=== PATIENT | female | born 2000 | race Caucasian/White ===

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

== ENCOUNTER 2019-12-17 16:06 | Inpatient (IN) ==
[2019-12-17] MEDS ORDERED: SODIUM CHLORIDE 0.9% 1000ML 1,000 ML IV ONE (17:01)
[2019-12-17] MEDS ORDERED: FAMOTIDINE 20MG/5ML IV PUSH IV STA (17:01)
[2019-12-17] MEDS ORDERED: ONDANSETRON INJ 2 MG/ML 2 ML VIAL IV STA (17:01)
[2019-12-17 17:12] LABS: Basophils # (auto) 0.02 K/uL (0-0.2); Basophils % (auto) 0.2 %; Eosinophils # (auto) 0.27 K/uL (0-0.5); Eosinophils % (auto) 2.7 %; Hemoglobin 9.7 g/dL (12.0-16.0); Immature Granulocytes # (auto) 0.05 K/uL (0.00-0.02); Immature Granulocytes % (auto) 0.5 %; Lymphocytes # (auto) 1.81 K/uL (1.2-3.4); Lymphocytes % (auto) 17.8 %; Mean Corpuscular Hemoglobin 23.5 pg (25-34); Mean Corpuscular Hgb Conc 29.4 g/dL (32-36); Mean Corpuscular Volume 79.9 fL (80-100); Mean Platelet Volume 9.7 fL (7.4-10.4); Monocytes # (auto) 1.03 K/uL (0.11-0.59); Monocytes % (auto) 10.1 %; Neutrophils # (auto) 6.97 K/uL (1.4-6.5); Neutrophils % (auto) 68.7 %; Platelet Count 448 K/uL (130-400); RDW Coefficient of Variation 14.9 % (11.5-14.5); Red Blood Count 4.13 M/uL (4.2-5.4); White Blood Count 10.15 K/uL (4.8-10.8)
[2019-12-17 17:16] LABS: Appearance Urine Clear (Clear); Bacteria Urine Automated Negative (Negative); Bilirubin Urine Negative (Negative); Blood Urine 3+ (Negative); Color Urine Yellow; Epithelial Cell Urine Auto >30 /lpf (0-5); Glucose Urine UA Negative (Negative); Ketones Urine 2+ (Negative); Leukocyte Esterase Urine Trace (Negative); Nitrite Urine Negative (Negative); Protein Urine Trace (Negative); RBC Urine Automated 0-4 /hpf (0-4); Specific Gravity Urine 1.016 (1.000-1.030); Urobilinogen Urine Negative (Negative)
[2019-12-17 17:19] LABS: Albumin Level 4.1 gm/dl (3.4-5.0); BUN Creatinine Ratio 9.6 (10-20); Calcium 9.3 mg/dl (8.5-10.1); Creatinine Clr Calc Pharmacy 105.6 ml/min; Est GFR (African American) 105.9; Est GFR (Non-African American) 91.4; Magnesium 2.1 mg/dl (1.8-2.4); Potassium 3.5 mmol/L (3.5-5.1)
[2019-12-17 17:21] LABS: Albumin Globulin Ratio 0.9 (0.9-2); Bilirubin,Total 0.4 mg/dl (0.2-1); Globulin 4.5 gm/dl (2.5-4.0); Total Protein 8.6 gm/dl (6.4-8.2)
--- NOTE | 2019-12-17 17:21 | Emergency Department Note ---
Impression & Plan Rectal bleeding, Anemia, Lower abdominal pain, Colitis ED Provider Note NAME: ERIK REILLY AGE: 19 SEX: F : 2000 ARRIVES VIA: Walk-In INFORMANT: [Patient] ED PROVIDER(S): [Zach Hahn MD] CHIEF COMPLAINT: Rectal bleeding HISTORY OF PRESENT ILLNESS: The patient is a 19-year-old female who states that for several months, she has had rectal bleeding. The blood was with bowel movements. There would be blood in the toilet and when she would wipe. She saw a provider about this before coming to school to [facility] and they felt that she may have had a tear that was bleeding. She was given suppositories but she states the suppositories made things worse. In the last week, the patient has had increased bleeding, she has had upper abdominal pain that is a 7 on a scale of 1-10. The pain comes on and she has to go to the bathroom. When she goes, the stool is loose and bloody. She is going to the bathroom about every hour. She is concerned that she is dehydrated. She is unable to sleep. There has been no fever, no chills. No cough or cold or congestion. No shortness of breath. She has no history of previous issues like this. No history of inflammatory bowel disease in the family. REVIEW OF SYSTEMS: See HPI for pertinent positives and negatives. A total of ten systems were reviewed and were otherwise negative. PMHx/PSHx: See Below SOCIAL HISTORY: See Below. PHYSICAL EXAM: GENERAL: Patient is in no acute distress. HEENT: No acute trauma, normocephalic atraumatic, mucous membranes moist, no nasal congestion, no scleral icterus. NECK: No stridor, no adenopathy, no meningismus, trachea is midline. LUNGS: Clear to auscultation bilaterally, no wheeze, no rhonchi, breath sounds equal. HEART: Tachycardic, regular rhythm, no murmurs. ABDOMEN: Soft, mildly tender in the lower abdomen/pelvis bilaterally, bowel sounds positive, no hernias, no peritonitis. EXTREMITIES: No cyanosis or edema, full range of motion of all the joints without pain or difficulty, no signs for acute trauma. NEUROLOGIC: Oriented x 3, no acute motor or sensory deficits, no focal weakness. SKIN: No rash, no jaundice, no diaphoresis. Rectal: Brown stool, heme positive. There is no hemorrhoid, no anal tear. Digital exam reveals no mass within the rectum. DIFFERENTIAL DIAGNOSIS: Diverticulosis, AVM, coagulopathy, colitis, inflammatory bowel disease, malignancy, Angelique-Morales tear, esophagitis, peptic ulcer disease, variceal bleed, gastritis, epistaxis, fissure, hemorrhoids, as well as other pathologies. EMERGENCY DEPARTMENT COURSE/PROCEDURES: ECG: Indication was tachycardia. The ECG shows a normal sinus rhythm with a rate of 92. There is no ST elevation, no PVCs. The QTc is 464. Continuous Cardiac Monitoring: An order was placed for continuous cardiac monitoring. The monitor shows a rate of 87 with normal sinus rhythm. MEDICAL DECISION MAKING: There is no leukocytosis. The patient is anemic with a hemoglobin of 9.7. Platelet count was slightly elevated. No significant electrolyte abnormality or kidney failure. No liver enzyme elevation. No evidence for pancreatitis. Urinalysis showed contamination, no obvious infection. testing was negative. Stool C. difficile testing was negative. Stool cultures are pending. Abdominal and pelvis CT showed a diffuse colitis, no bowel obstruction or free air. Patient received IV saline for hydration. She was given IV Zofran, she received IV lactated Ringer's, she was given IV Pepcid. The patient is anemic. She has colitis. By exam, she does have heme positive stool. I did speak with GI, a hospitalization and colonoscopy were recommended. There is concern for ulcerative colitis as the cause for her presentation. The patient was told the results of her testing. She is aware of the need for a hospital stay. I did speak with the caseworker intake. The on-call hospitalist was consulted. Past Med/Surg History Medical History ADHD Social History Smoking Status: Former smoker Tobacco Type: Cigarettes Preferred Language: Ukrainian Feels Safe at Home: Yes Allergies Allergies Allergy/AdvReac Type Severity Reaction Status Date / Time red dye AdvReac Intermediate Vomiting Verified 12/17/19 17:19 Home Meds Home Medications Medication Instructions Recorded Confirmed dextroamphetamine-amphetamine 25 mg PO QAM PRN 12/17/19 12/17/19 [Adderall XR] etonogestrel [Nexplanon] 68 mg SUBDERMAL DIRECTED 12/17/19 12/17/19 Results & Data (ED) Vital Signs Vital Signs - 24 hr 12/17/19 16:19 12/17/19 17:01 12/17/19 17:03 Temperature 36.6 C Temperature Source Oral Pulse Rate 124 H 112 H 121 H Pulse Rate [Finger] Pulse Rate from SpO2 Sensor 114 H 118 H Respiratory Rate 18 22 17 Respiratory Effort / Characteristics Non-Labored Spontaneous Respiratory Depth Normal Respiratory Pattern Regular Blood Pressure 140/95 129/84 Blood Pressure [Right Arm] Blood Pressure Mean 110 113 Blood Pressure Mean [Right Arm] Blood Pressure Position Sitting Pulse Oximetry 97 98 99 Oxygen Delivery Method Room Air Room Air Room Air Sepsis Recent Fever Within 48 Hours No Sepsis New/Unexplained Change in Mental Status No Sepsis Action Taken by Nursing No Action Required 12/17/19 17:10 12/17/19 17:21 12/17/19 17:48 Temperature Temperature Source Pulse Rate 109 H 125 H Pulse Rate [Finger] Pulse Rate from SpO2 Sensor 109 H Respiratory Rate 17 24 Respiratory Effort / Characteristics Respiratory Depth Respiratory Pattern Blood Pressure Blood Pressure [Right Arm] Blood Pressure Mean Blood Pressure Mean [Right Arm] Blood Pressure Position Pulse Oximetry 98 Oxygen Delivery Method Room Air Room Air Room Air Sepsis Recent Fever Within 48 Hours Sepsis New/Unexplained Change in Mental Status Sepsis Action Taken by Nursing 12/17/19 17:50 12/17/19 18:00 12/17/19 18:01 Temperature Temperature Source Pulse Rate 97 H 93 H 103 H Pulse Rate [Finger] Pulse Rate from SpO2 Sensor 92 H 106 H Respiratory Rate 18 16 20 Respiratory Effort / Characteristics Respiratory Depth Respiratory Pattern Blood Pressure 121/85 Blood Pressure [Right Arm] Blood Pressure Mean 89 Blood Pressure Mean [Right Arm] Blood Pressure Position Pulse Oximetry 100 100 Oxygen Delivery Method Room Air Room Air Room Air Sepsis Recent Fever Within 48 Hours Sepsis New/Unexplained Change in Mental Status Sepsis Action Taken by Nursing 12/17/19 18:10 12/17/19 18:20 12/17/19 18:45 Temperature Temperature Source Pulse Rate 88 103 H 113 H Pulse Rate [Finger] Pulse Rate from SpO2 Sensor 89 102 H Respiratory Rate 13 16 19 Respiratory Effort / Characteristics Respiratory Depth Respiratory Pattern Blood Pressure Blood Pressure [Right Arm] Blood Pressure Mean Blood Pressure Mean [Right Arm] Blood Pressure Position Pulse Oximetry 100 100 Oxygen Delivery Method Room Air Room Air Room Air Sepsis Recent Fever Within 48 Hours Sepsis New/Unexplained Change in Mental Status Sepsis Action Taken by Nursing 12/17/19 18:50 12/17/19 18:51 12/17/19 19:00 Temperature Temperature Source Pulse Rate 103 H 103 H 95 H Pulse Rate [Finger] Pulse Rate from SpO2 Sensor 104 H 99 H 96 H Respiratory Rate 19 19 22 Respiratory Effort / Characteristics Respiratory Depth Respiratory Pattern Blood Pressure 113/87 123/91 Blood Pressure [Right Arm] Blood Pressure Mean 99 99 Blood Pressure Mean [Right Arm] Blood Pressure Position Pulse Oximetry 100 100 100 Oxygen Delivery Method Room Air Room Air Room Air Sepsis Recent Fever Within 48 Hours Sepsis New/Unexplained Change in Mental Status Sepsis Action Taken by Nursing 12/17/19 19:01 12/17/19 19:11 12/17/19 19:20 Temperature Temperature Source Pulse Rate 98 H 111 H 87 Pulse Rate [Finger] Pulse Rate from SpO2 Sensor 98 H 88 Respiratory Rate 24 38 H 20 Respiratory Effort / Characteristics Respiratory Depth Respiratory Pattern Blood Pressure Blood Pressure [Right Arm] Blood Pressure Mean Blood Pressure Mean [Right Arm] Blood Pressure Position Pulse Oximetry 100 99 Oxygen Delivery Method Room Air Room Air Room Air Sepsis Recent Fever Within 48 Hours Sepsis New/Unexplained Change in Mental Status Sepsis Action Taken by Nursing 12/17/19 19:30 12/17/19 19:45 12/17/19 19:50 Temperature Temperature Source Pulse Rate 83 100 H 95 H Pulse Rate [Finger] Pulse Rate from SpO2 Sensor 84 96 H Respiratory Rate 15 22 16 Respiratory Effort / Characteristics Respiratory Depth Respiratory Pattern Blood Pressure 105/79 Blood Pressure [Right Arm] Blood Pressure Mean 83 Blood Pressure Mean [Right Arm] Blood Pressure Position Pulse Oximetry 100 100 Oxygen Delivery Method Room Air Room Air Room Air Sepsis Recent Fever Within 48 Hours Sepsis New/Unexplained Change in Mental Status Sepsis Action Taken by Nursing 12/17/19 20:55 12/17/19 20:56 12/17/19 20:57 Temperature Temperature Source Pulse Rate Pulse Rate [Finger] 87 Pulse Rate from SpO2 Sensor 93 H 95 H Respiratory Rate 20 Respiratory Effort / Characteristics Non-Labored Spontaneous Respiratory Depth Normal Respiratory Pattern Regular Blood Pressure 116/79 Blood Pressure [Right Arm] 116/79 Blood Pressure Mean 84 Blood Pressure Mean [Right Arm] 91 Blood Pressure Position Pulse Oximetry 100 100 100 Oxygen Delivery Method Room Air Room Air Room Air Sepsis Recent Fever Within 48 Hours Sepsis New/Unexplained Change in Mental Status Sepsis Action Taken by Nursing 12/17/19 21:00 12/17/19 21:01 12/17/19 21:10 Temperature Temperature Source Pulse Rate Pulse Rate [Finger] Pulse Rate from SpO2 Sensor 93 H 92 H 101 H Respiratory Rate Respiratory Effort / Characteristics Respiratory Depth Respiratory Pattern Blood Pressure 124/73 Blood Pressure [Right Arm] Blood Pressure Mean 83 Blood Pressure Mean [Right Arm] Blood Pressure Position Pulse Oximetry 100 100 100 Oxygen Delivery Method Room Air Room Air Room Air Sepsis Recent Fever Within 48 Hours Sepsis New/Unexplained Change in Mental Status Sepsis Action Taken by Nursing 12/17/19 21:21 12/17/19 21:30 12/17/19 21:31 Temperature Temperature Source Pulse Rate Pulse Rate [Finger] Pulse Rate from SpO2 Sensor 83 86 86 Respiratory Rate Respiratory Effort / Characteristics Respiratory Depth Respiratory Pattern Blood Pressure 125/75 Blood Pressure [Right Arm] Blood Pressure Mean 93 Blood Pressure Mean [Right Arm] Blood Pressure Position Pulse Oximetry 99 99 Oxygen Delivery Method Room Air Room Air Room Air Sepsis Recent Fever Within 48 Hours Sepsis New/Unexplained Change in Mental Status Sepsis Action Taken by Nursing 12/17/19 21:46 12/17/19 21:50 12/17/19 22:00 Temperature Temperature Source Pulse Rate Pulse Rate [Finger] Pulse Rate from SpO2 Sensor 103 H 96 H 101 H Respiratory Rate Respiratory Effort / Characteristics Respiratory Depth Respiratory Pattern Blood Pressure 112/80 Blood Pressure [Right Arm] Blood Pressure Mean 90 Blood Pressure Mean [Right Arm] Blood Pressure Position Pulse Oximetry 100 100 100 Oxygen Delivery Method Room Air Room Air Room Air Sepsis Recent Fever Within 48 Hours Sepsis New/Unexplained Change in Mental Status Sepsis Action Taken by Nursing 12/17/19 22:01 12/17/19 22:10 12/17/19 22:20 Temperature Temperature Source Pulse Rate Pulse Rate [Finger] Pulse Rate from SpO2 Sensor 94 H 94 H 100 H Respiratory Rate Respiratory Effort / Characteristics Respiratory Depth Respiratory Pattern Blood Pressure Blood Pressure [Right Arm] Blood Pressure Mean Blood Pressure Mean [Right Arm] Blood Pressure Position Pulse Oximetry 98 100 100 Oxygen Delivery Method Room Air Room Air Room Air Sepsis Recent Fever Within 48 Hours Sepsis New/Unexplained Change in Mental Status Sepsis Action Taken by [facility] Medications Current Medication List: was personally reviewed by me Laboratory Data Attestation: I reviewed the patient's lab results. Result diagrams: 12/17/19 16:32 12/17/19 16:32 Lab Results 12/17/19 12/17/19 12/17/19 Range/Units 16:32 16:32 16:32 WBC 10.15 (4.8-10.8) K/uL RBC 4.13 L (4.2-5.4) M/uL Hgb 9.7 L (12.0-16.0) g/dL Hct 33.0 L (37-47) % MCV 79.9 L (80-100) fL MCH 23.5 L (25-34) pg MCHC 29.4 L (32-36) g/dL RDW Std Deviation 43.0 (36.4-46.3) fL RDW Coeff of Leigh Ann 14.9 H (11.5-14.5) % Plt Count 448 H (130-400) K/uL MPV 9.7 (7.4-10.4) fL Immature Gran % (Auto) 0.5 % Neut % (Auto) 68.7 % Lymph % (Auto) 17.8 % Lucas % (Auto) 10.1 % Eos % (Auto) 2.7 % Baso % (Auto) 0.2 % Neut # (Auto) 6.97 H (1.4-6.5) K/uL Lymph # (Auto) 1.81 (1.2-3.4) K/uL Lucas # (Auto) 1.03 H (0.11-0.59) K/uL Eos # (Auto) 0.27 (0-0.5) K/uL Baso # (Auto) 0.02 (0-0.2) K/uL Immature Gran # (Auto) 0.05 H (0.00-0.02) K/uL Sodium (136-145) mmol/L Potassium (3.5-5.1) mmol/L Chloride (98-107) mmol/L Carbon Dioxide (21-32) mmol/L Anion Gap (3-11) BUN (7-18) mg/dl Creatinine (0.6-1.2) mg/dl Est Cr Clr Drug Dosing ml/min Est GFR ( Amer) Est GFR (Non-Af Amer) BUN/Creatinine Ratio (10-20) Glucose (70-99) mg/dl Calcium (8.5-10.1) mg/dl Magnesium (1.8-2.4) mg/dl Total Bilirubin (0.2-1) mg/dl AST (15-37) U/L ALT (12-78) U/L Alkaline Phosphatase (45-117) U/L Total Protein (6.4-8.2) gm/dl Albumin (3.4-5.0) gm/dl Globulin (2.5-4.0) gm/dl Albumin/Globulin Ratio (0.9-2) Lipase (73-393) U/L Urine Color Urine Appearance (Clear) Urine pH (4.5-7.5) Ur Specific [place] (1.000-1.030) Urine Protein (Negative) Urine Glucose (UA) (Negative) Urine Ketones (Negative) Urine Blood (Negative) Urine Nitrite (Negative) Urine Bilirubin (Negative) Urine Urobilinogen (Negative) Ur Leukocyte Esterase (Negative) Urine WBC (Auto) (0-5) /hpf Urine RBC (Auto) (0-4) /hpf U Hyaline Cast (Auto) (0-5) /lpf U Epithel Cells (Auto) (0-5) /lpf Urine Bacteria (Auto) (Negative) Ur Renal Epithelial Cell Urine Mucus (None Prsent) POC Ur Test NEG (NEG) Stl C. diff Tox B Gene (Neg) Blood Type A Positive Antibody Screen NEGATIVE 12/17/19 12/17/19 12/17/19 Range/Units 16:32 16:32 21:58 WBC (4.8-10.8) K/uL RBC (4.2-5.4) M/uL Hgb (12.0-16.0) g/dL Hct (37-47) % MCV (80-100) fL MCH (25-34) pg MCHC (32-36) g/dL RDW Std Deviation (36.4-46.3) fL RDW Coeff of Leigh Ann (11.5-14.5) % Plt Count (130-400) K/uL MPV (7.4-10.4) fL Immature Gran % (Auto) % Neut % (Auto) % Lymph % (Auto) % Lucas % (Auto) % Eos % (Auto) % Baso % (Auto) % Neut # (Auto) (1.4-6.5) K/uL Lymph # (Auto) (1.2-3.4) K/uL Lucas # (Auto) (0.11-0.59) K/uL Eos # (Auto) (0-0.5) K/uL Baso # (Auto) (0-0.2) K/uL Immature Gran # (Auto) (0.00-0.02) K/uL Sodium 137 (136-145) mmol/L Potassium 3.5 (3.5-5.1) mmol/L Chloride 106 (98-107) mmol/L Carbon Dioxide 22 (21-32) mmol/L Anion Gap 9.0 (3-11) BUN 9 (7-18) mg/dl Creatinine 0.90 (0.6-1.2) mg/dl Est Cr Clr Drug Dosing 105.6 ml/min Est GFR ( Amer) 105.9 Est GFR (Non-Af Amer) 91.4 BUN/Creatinine Ratio 9.6 L (10-20) Glucose 101 H (70-99) mg/dl Calcium 9.3 (8.5-10.1) mg/dl Magnesium 2.1 (1.8-2.4) mg/dl Total Bilirubin 0.4 (0.2-1) mg/dl AST 11 L (15-37) U/L ALT 11 L (12-78) U/L Alkaline Phosphatase 70 (45-117) U/L Total Protein 8.6 H (6.4-8.2) gm/dl Albumin 4.1 (3.4-5.0) gm/dl Globulin 4.5 H (2.5-4.0) gm/dl Albumin/Globulin Ratio 0.9 (0.9-2) Lipase 79 (73-393) U/L Urine Color Yellow Urine Appearance Clear (Clear) Urine pH 5.0 (4.5-7.5) Ur Specific [place] 1.016 (1.000-1.030) Urine Protein Trace H (Negative) Urine Glucose (UA) Negative (Negative) Urine Ketones 2+ H (Negative) Urine Blood 3+ H (Negative) Urine Nitrite Negative (Negative) Urine Bilirubin Negative (Negative) Urine Urobilinogen Negative (Negative) Ur Leukocyte Esterase Trace H (Negative) Urine WBC (Auto) 1-5 (0-5) /hpf Urine RBC (Auto) 0-4 (0-4) /hpf U Hyaline Cast (Auto) 10-30 H (0-5) /lpf U Epithel Cells (Auto) >30 H (0-5) /lpf Urine Bacteria (Auto) Negative (Negative) Ur Renal Epithelial Cell Not Reportable Urine Mucus Present A (None Prsent) POC Ur Test (NEG) Stl C. diff Tox B Gene Negative Cdiff Gene (Neg) Blood Type Antibody Screen Administered Medications Discontinued Medications Famotidine (Famotidine 20mg/5ml Iv Push) 20 mg IV ONE STA Stop: 12/17/19 17:02 Last Admin: 12/17/19 17:52 Dose: 20 mg Documented by: [id number] Sodium Chloride (Nss 1000ml) 1,000 mls @ 999 mls/hr IV .Q1H1M ONE Stop: 12/17/19 18:01 Last Infusion: 12/17/19 18:31 Dose: 0 mls/hr Documented by: [id number] Admin: 12/17/19 17:23 Dose: 999 mls/hr Documented by: [id number] Lactated Ringer's (Lr) 1,000 mls @ 999 mls/hr IV .Q1H1M STA Stop: 12/17/19 19:42 Last Infusion: 12/17/19 20:19 Dose: 0 mls/hr Documented by: [id number] Admin: 12/17/19 19:16 Dose: 999 mls/hr Documented by: [id number] Ioversol (Ioversol 100ml) 93 ml IV ONCE ONE Stop: 12/17/19 19:13 Last Admin: 12/17/19 19:13 Dose: 1 ml Documented by: [id number] Ondansetron HCl (Ondansetron Inj 2 Mg/Ml 2 Ml Vial) 4 mg IV NOW STA Stop: 12/17/19 17:02 Last Admin: 12/17/19 17:52 Dose: 4 mg Documented by: [id number] Imaging Data Radiologist's Impression: CT OF THE ABDOMEN AND PELVIS WITH CONTRAST CLINICAL HISTORY: Abdominal pain. Rectal bleeding. COMPARISON STUDY: None. TECHNIQUE: Following IV administration of 94 mL of Optiray-320, axial images of the abdomen and pelvis were obtained from the lung bases to the proximal femurs. Images were reviewed in the axial, sagittal, and coronal planes. IV contrast was administered without complication. Automated exposure control was utilized for the study. A dose lowering technique was utilized adhering to the principles of ALARA. Oral contrast was administered. CT DOSE: 491.90 mGy.cm FINDINGS: Lung bases are unremarkable. No pneumatosis, free air or portal venous gas is present. The liver, spleen, adrenal glands, kidneys and pancreas are normal. There is no biliary or pancreatic ductal dilatation. There is no hydronephrosis or hydroureter. There is no evidence for a bowel obstruction. The appendix is normal. Note is made of moderate wall thickening of the entire colon as well as wall thickening of the rectum. Prominent pericolonic lymph nodes are reactive. There is no abscess. No small bowel wall thickening is noted. Ovaries are not enlarged. Major vasculature is patent. No fractures or suspicious lesions are identified within the visualized skeletal structures. IMPRESSION: Mild wall thickening of the rectum and moderate wall thickening of the colon consistent with a pancolitis. This may be infectious or inflammatory in etiology. No abscess. Blood Pressure Blood Pressure Findings: Normal blood pressure Blood Pressure Disposition: further management by hospitalist Discharge Plan Visit Data Chief Complaint: Rectal Bleed Stated Complaint: abnormal labs ED Provider: Zach Hahn Discharge Problem: Rectal bleeding, Anemia, Lower abdominal pain, Colitis Patient Disposition: Admitted As Inpatient Condition: Fair Forms Stand Alone Forms: [facility], [facility], Important Visit Information Prescriptions Prescriptions: No Action dextroamphetamine-amphetamine [Adderall XR] 25 mg capsule,extended release 24hr 25 mg PO QAM PRN (Reason: ADHD) RF: 0 Nexplanon 68 mg Implant 68 mg SUBDERMAL DIRECTED RF: 0 Referrals Referrals: [facility] [Primary Care Provider] - Discharge Problem: Anemia Qualifiers: Anemia type: unspecified type Qualified Code(s): D64.9 - Anemia, unspecified
[2019-12-17 17:31] LABS: Mucus Urine Present (None Prsent)
[2019-12-17] MEDS ORDERED: LACTATED RINGER'S 1,000 ML IV STA (18:42)
[2019-12-17] MEDS ORDERED: IOVERSOL 100ml IV ONE (19:12)
--- NOTE | 2019-12-17 20:19 | CT Scan Report ---
CT OF THE ABDOMEN AND PELVIS WITH CONTRAST CLINICAL HISTORY: Abdominal pain. Rectal bleeding. COMPARISON STUDY: None. TECHNIQUE: Following IV administration of 94 mL of Optiray-320, axial images of the abdomen and pelvi s were obtained from the lung bases to the proximal femurs. Images were reviewed in the axial, sagitt al, and coronal planes. IV contrast was administered without complication. Automated exposure contro l was utilized for the study. A dose lowering technique was utilized adhering to the principles of A ROE. Oral contrast was administered. CT DOSE: 491.90 mGy.cm FINDINGS: Lung bases are unremarkable. No pneumatosis, free air or portal venous gas is present. The liver, spleen, adrenal glands, kidneys and pancreas are normal. There is no biliary or pancreatic javad chris dilatation. There is no hydronephrosis or hydroureter. There is no evidence for a bowel obstructi on. The appendix is normal. Note is made of moderate wall thickening of the entire colon as well as w all thickening of the rectum. Prominent pericolonic lymph nodes are reactive. There is no abscess. No small bowel wall thickening is noted. Ovaries are not enlarged. Major vasculature is patent. No frac tures or suspicious lesions are identified within the visualized skeletal structures. IMPRESSION: Mild wall thickening of the rectum and moderate wall thickening of the colon consistent with a pancolitis. This may be infectious or inflammatory in etiology. No abscess. ACT 112: Negative or not required by law. Electronically signed by: Arthur Conte M.D. 12/17/2019 8:18 PM
--- NOTE | 2019-12-17 23:07 | History & Physical Report ---
Date of Service December 17, 2019 Assessment & Plan (1) Blood in stool, pretty: Karen Moore is a 19 year old female without significant past medical history who presented to the ED with a few-month history of progressively worsening bloody stools, abdominal pain, bowel urgency, and bowel frequency, with associated anemia, concerning for inflammatory bowel disease. Bloody stools, BM frequency and urgency, abdominal pain: most likely the initial presentation of inflammatory bowel disease given the chronicity, pattern of pain, CT findings, normal WBC count, and patient's age; differential also includes infectious colitis, upper GI bleed, hemorrhoids, malignancy. An infectious cause is less likely given the chronicity of symptoms, WBC count, and CT findings; C. diff is very unlikely given the patient's symptoms and lack of recent antibiotic use. Brisk upper GI bleed is unlikely given the chronicity of symptoms, lack of melena, and CT findings. -admit to med/surg -anemia: see below -lactated ringers @ 100mL/hr -stool culture pending -C. diff uncollected but unlikely -consider GI consult Anemia: likely an [id number] blood loss anemia given the history, MCV of 79.9, and elevated RDW. Her hemoglobin of 9.7 on admission is reassuring considering it was 9.4 at the patient's visit to her PCP about two weeks ago. -hemodynamically stable -monitor clinically -repeat CBC in AM -transfuse for hemoglobin < 7.0 -blood type A positive -consider MWF iron supplementation -f/u outpatient Thrombocythemia: likely an acute phase reactant. -repeat CBC in AM ADHD: stable -holding home dose adderall 25mg due to gastrointestinal stimulant effect Health maintenance: patient does not have a local PCP and would like to establish care with Dr. Rubio -will set up an appointment with [facility] at [address] [facility] [address] (clinic: [phone]) FENGI: LR @ 100mL/hr Diet: NPO per previous order Code status: full code DVT prophylaxis: contraindicated Disposition: admit to med/surg Present on Admission?: Yes (2) Pain with bowel movements: (3) Increased bowel frequency: (4) Anemia: (5) Thrombocythemia: History of Present Illness Primary Care Provider: [facility] Karen Moore is a 19 year old female without significant past medical history who presented to the ED with a few-month history of increasingly frequent bloody stools and associated abdominal pain. She first noticed blood-streaked stools a few months ago; at this time she was having 1-2 bowel movements per day, which is normal for her. At first, she would only notice blood on her stool once or twice a week, but over time, this became more frequent, and the amount of blood in her stools increased. Two weeks ago, before she returned to [place] (from [place]) to begin the academic year at [employer], she began to have mild abdominal pain that preceded her bowel movements, and began to experience urgency with her bowel movements. At this time, she was having 3-4 bowel movements per day, with a moderate amount of blood in each bowel movement. She saw her PCP in [place] at this time - she recalls her hemoglobin was 9.4, and after anoscopy, she was told by her PCP that they suspected a "tear". Over the past few days, her abdominal pain, bowel movement frequency, and blood in her stool have all worsened; she reports at least one bowel movement per hour, grossly bloody stools, and abdominal pain severe enough to wake her up from sleep 3-4 times per night. She describes her abdominal pain as dull and not confined to a specific location or quadrant; it was originally relieved by having a bowel movement, but over the past few days, her pain has remained even after bowel movements. It is mild (1-2/10) at rest but most severe (8-9/10) right before each bowel movement. The progression of her symptoms has been gradual and she has not noticed any inciting factor or trigger including dietary factors, and has not had any recent illnesses. Throughout the course of her symptoms over the past few months up until now, patient denies fever, nausea, vomiting, diarrhea, lightheadedness, watery stools, weakness, palpitations, racing heartbeat, cough, congestion, sick contacts, chills, night sweats, chest pain, shortness of breath, or easy bruising. She is not aware of any family history of inflammatory bowel disease. She is sensitive to red dye (reaction - vomiting) but has no other dietary sensitivities, intolerances, or allergies. Patient denies any recent antibiotic use. Her only medical condition is ADHD for which she takes adderall XR 25mg daily. Allergies Allergy/AdvReac Type Severity Reaction Status Date / Time red dye AdvReac Intermediate Vomiting Verified 12/17/19 17:19 Home Medications Home Medications Medication Instructions Recorded Confirmed Type dextroamphetamine-amphetamine 25 mg PO QAM PRN 12/17/19 12/17/19 History [Adderall XR] etonogestrel [Nexplanon] 68 mg SUBDERMAL DIRECTED 12/17/19 12/17/19 History Past Med/Surg History Medical History (Updated 12/18/19 @ 18:50 by PAVAN Mathews) ADHD Social History Smoking Status: Former smoker Tobacco Type: Cigarettes Hx Alcohol Use: Yes Hx Substance Use: No Preferred Language: Citizen Of [place] Communication Ability: Effective Ent Surgeon Required: No Beliefs That Will Affect Care: None Current Living Situation: Other Current Living Situation Comment: roommates Feels Safe at Home: Yes Review of Systems Constitutional: no fever, no chills, no sweats, no body aches, no fatigue, no anorexia, no weight loss and no weight gain Ear, Nose, Mouth, Throat: no nasal congestion, no epistaxis and no sore throat Respiratory: no cough, no chest congestion, no dyspnea and no wheezing Cardiovascular: no chest pain, no dyspnea, no palpitations, no lightheadedness, no syncope and no edema Gastrointestinal: no nausea, no vomiting, no hematemesis and no constipation Genitourinary: no dysuria, no difficulty urinating, no urinary frequency, no hematuria and no flank pain Musculoskeletal: no back pain, no joint pain and no myalgia Neurologic: no unsteadiness, no falls, no generalized weakness, no tingling, no numbness, no dizziness, no syncope and no confusion Hematologic / Lymphatic: no easy bleeding and no easy bruising Allergy / Immunological: no GI upset with certain foods and no rash Physical Exam Constitutional: well developed and well nourished; no acute distress, not ill appearing and no altered mental status Eyes: + anicteric sclerae and EOM intact bilaterally; no scleral abnormality ENMT: mucous membranes moist Respiratory: normal respiratory effort, lungs clear to auscultation Cardiovascular: RRR, no murmur, no edema Gastrointestinal (Abdomen): abdomen soft, nondistended, mild tenderness to deep palpation of the RUQ, LUQ, and RLQ; deep palpation of the RLQ causes mild pain of the RUQ and epigastrum; no hepatosplenomegaly, bowel sounds normoactive in all quadrants, no guarding; rectal exam deferred (see ED admission note for recent rectal exam) Musculoskeletal: no cyanosis or clubbing, extremities motor strength 5/5 Skin: no rashes, warm and dry normal turgor; no jaundice Neurologic: moves all extremities no focal neurologic deficits Psychiatric: A+Ox3, euthymic affect Results & Data Results & Data ([facility]) Vital Signs (Past 12 Hours) Vital Signs Temp Pulse Pulse Resp BP BP Pulse Ox 12/17/19 22:20 100 12/17/19 22:10 100 12/17/19 22:01 98 12/17/19 22:00 112/80 100 12/17/19 21:50 100 12/17/19 21:46 100 12/17/19 21:31 99 12/17/19 21:30 125/75 99 12/17/19 21:10 100 12/17/19 21:01 100 12/17/19 21:00 124/73 100 12/17/19 20:57 100 12/17/19 20:56 87 20 116/79 100 12/17/19 20:55 116/79 100 12/17/19 19:50 95 H 16 100 12/17/19 19:45 100 H 22 12/17/19 19:30 83 15 105/79 100 12/17/19 19:20 87 20 99 12/17/19 19:11 111 H 38 H 12/17/19 19:01 98 H 24 100 12/17/19 19:00 95 H 22 123/91 100 12/17/19 18:51 103 H 19 113/87 100 12/17/19 18:50 103 H 19 100 12/17/19 18:45 113 H 19 12/17/19 18:20 103 H 16 100 12/17/19 18:10 88 13 100 12/17/19 18:01 103 H 20 100 12/17/19 18:00 93 H 16 121/85 100 12/17/19 17:50 97 H 18 12/17/19 17:48 125 H 24 12/17/19 17:10 109 H 17 98 12/17/19 17:03 121 H 17 99 12/17/19 17:01 112 H 22 129/84 98 12/17/19 16:19 36.6 C 124 H 18 140/95 97 Supervising Physician Co-Signing Physician Notes Attending addendum: I have physically seen this patient, have supervised the medical residents activities, and agree with the H&P unless as otherwise noted. Assessment and Plan: Pancolitis- symptoms of bloody stools, bowel frequency and urgency and pain Follow results of stool culture and stool for C. difficile. Admit to [facility] at 100 mils per hour Establish PCP care with residents Anemia- Secondary to bleeding above. Follow serial laboratories Thrombocytosis- Acute phase reactant ADHD- Hold treatment for now Remainder of orders and notations as noted Resident Activity Tracking Resident Involvement: Resident Care Provided Care Provided: Adult Hospital Medicine
[2019-12-18] MEDS: LACTATED RINGER'S 1,000 ML IV SCH ×3 (00:37→20:06)
[2019-12-18 06:15] LABS: Basophils # (auto) 0.01 K/uL (0-0.2); Basophils % (auto) 0.1 %; Eosinophils # (auto) 0.28 K/uL (0-0.5); Eosinophils % (auto) 3.1 %; Hematocrit (blood only) 28.3 % (37-47); Hemoglobin 8.9 g/dL (12.0-16.0); Immature Granulocytes # (auto) 0.03 K/uL (0.00-0.02); Immature Granulocytes % (auto) 0.3 %; Lymphocytes # (auto) 1.45 K/uL (1.2-3.4); Lymphocytes % (auto) 16.2 %; Mean Corpuscular Hemoglobin 24.9 pg (25-34); Mean Corpuscular Hgb Conc 31.4 g/dL (32-36); Mean Corpuscular Volume 79.3 fL (80-100); Mean Platelet Volume 9.3 fL (7.4-10.4); Monocytes # (auto) 1.05 K/uL (0.11-0.59); Monocytes % (auto) 11.7 %; Neutrophils # (auto) 6.13 K/uL (1.4-6.5); Neutrophils % (auto) 68.6 %; Platelet Count 305 K/uL (130-400); Red Blood Count 3.57 M/uL (4.2-5.4); White Blood Count 8.95 K/uL (4.8-10.8)
--- NOTE | 2019-12-18 09:53 | Gastrointestinal Consultation ---
Date of Consultation December 18, 2019 Assessment & Plan (1) Anemia: (2) Lower abdominal pain: (3) Colitis: (4) Blood in stool, pretty: Patient has four month history of progressively worsening bloody bowel movements and abdominal discomfort admitted with anemia and pancolitis on CT A/P imaging. Presentation concerning for IBD. She is quite tender with abdominal examination. Will start Solu-Medrol 60mg IV q 8 hours and defer colonoscopy at this time. Case reviewed with Dr. Vergara. Please refer to supervising physician addendum for further recommendations. Supervising Physician Co-Signing Physician Notes I reviewed PURA note above and agree. I spoke with patient and mother and examined patient. She is feeling better at present. Abd pos bs, soft, no guarding nor rebound. Probable IBD. Continue IV steroids. Elective colonoscopy. History of Present Illness Attending Physician: Mohan Gamboa, History of Present Illness Patient is a 19-year-old female with no significant past medical history that presented to the emergency department due to increased bloody stools. Abdominal pelvis CT showed diffuse colitis with no bowel obstruction or free air. Anemia hemoglobin 9.7, hematocrit 33.0 at time of admission. Heme positive stool. Negative C. difficile stool testing. Stool culture pending. Subsequently admitted for further evaluation. On exam/interview today, the patient reports that she has been having bloody stools on and off since August 2019. She states initially it that was small amounts. She states in October 2019 she was on her menses but also had gas which she noted she would have black blood clots. She states in November 2019 she had some abdominal pain start prior to BMs. She reports persistent abdominal discomfort in the right lower quadrant. She states that now she is having bloody bowel movements 3 times in a row when waking and then about hourly throughout the day. Stools will wake her at night. Denies fecal incontinence. She reports that the consistency is that of "kinetic sand". States she notes blood in the toilet bowl, on the stool, and when wiping. She denies any weight loss. She states she has gained approximately 25 pounds since June 2019. Denies any joint pain or rashes. Denies vomiting. She reports nausea over the last 2 days. She states that she has not really noticed any appetite changes. She did recently try a bland diet which did not change symptoms. She denies any difficulty consuming dairy. Last menstrual cycle was in the beginning of November 2019. She does have a Nexplanon. The patient denies any history of smoking cigarettes. She denies significant secondhand smoke exposures. She reports that she does consume alcohol regularly. She states that she increased her alcohol intake over the summer but did cut back in November as it worsened her symptoms. She does report that she has smoked marijuana regularly as it has been helpful for symptoms. 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 She is unmarried and has no children. Home is [place], she lives outside [place]. Denies any family history of inflammatory bowel disease or colon cancer. Allergies Allergy/AdvReac Type Severity Reaction Status Date / Time red dye AdvReac Intermediate Vomiting Verified 12/17/19 17:19 Home Medications Home Medications Medication Instructions Recorded Confirmed Type dextroamphetamine-amphetamine 25 mg PO QAM PRN 12/17/19 12/17/19 History [Adderall XR] etonogestrel [Nexplanon] 68 mg SUBDERMAL DIRECTED 12/17/19 12/17/19 History Patient History Medical History ADHD Social History Smoking Status: Former smoker Tobacco Type: Cigarettes Hx Alcohol Use: Yes Hx Substance Use: No Preferred Language: [place] Communication Ability: Effective Phlebotomist Lab Assistant Required: No Beliefs That Will Affect Care: None Current Living Situation: Other Current Living Situation Comment: roommates Feels Safe at Home: Yes Review of Systems Review of Systems: All systems reviewed & are unremarkable except as noted in HPI & below Physical Exam Constitutional: WD/WN, vitals as above Eyes: PERRL, conjunctivae normal, anicteric sclerae ENMT: external ear and nose normal, oropharynx normal Neck: trachea midline, no thyromegaly Respiratory: normal respiratory effort, lungs clear to auscultation Cardiovascular: RRR, no murmur, no edema Gastrointestinal (Abdomen): Inspection/Auscultation: abdomen normal to inspection and normal bowel sounds; abdomen not distended Percussion/Palpation: + abdomen tender (RLQ with light palpation), + guarding and abdomen soft; abdomen not rigid, no hepatosplenomegaly and no hepatomegaly Musculoskeletal: Extremities: no cyanosis and no clubbing Skin: no rashes, warm and dry Neurologic: PERRL, EOMI, accommodation nl, no face palsy, no dysarthria Psychiatric: A+Ox3, euthymic affect Results & Data ([facility]) Vital Signs (Past 12 Hours) Vital Signs Temp Pulse Pulse Resp BP BP Pulse Ox 12/18/19 07:27 36.9 C 93 H 16 127/78 100 12/18/19 00:10 36.5 C 108 H 16 132/85 100 12/18/19 00:05 93 H 18 115/65 100 12/17/19 22:20 100 12/17/19 22:10 100 12/17/19 22:01 98 12/17/19 22:00 112/80 100 12/17/19 21:50 100 12/17/19 21:46 100 Laboratory Results - last 24 hr 12/17/19 12/17/19 12/17/19 16:32 16:32 16:32 WBC 10.15 RBC 4.13 L Hgb 9.7 L Hct 33.0 L MCV 79.9 L MCH 23.5 L MCHC 29.4 L RDW Std Deviation 43.0 RDW Coeff of Leigh Ann 14.9 H Plt Count 448 H MPV 9.7 Immature Gran % (Auto) 0.5 Neut % (Auto) 68.7 Lymph % (Auto) 17.8 [place] % (Auto) 10.1 Eos % (Auto) 2.7 Baso % (Auto) 0.2 Neut # (Auto) 6.97 H Lymph # (Auto) 1.81 [place] # (Auto) 1.03 H Eos # (Auto) 0.27 Baso # (Auto) 0.02 Immature Gran # (Auto) 0.05 H Sodium Potassium Chloride Carbon Dioxide Anion Gap BUN Creatinine Est Cr Clr Drug Dosing Est GFR ( Amer) Est GFR (Non-Af Amer) BUN/Creatinine Ratio Glucose Calcium Magnesium Total Bilirubin AST ALT Alkaline Phosphatase Total Protein Albumin Globulin Albumin/Globulin Ratio Lipase Urine Color Urine Appearance Urine pH Ur Specific [place] Urine Protein Urine Glucose (UA) Urine Ketones Urine Blood Urine Nitrite Urine Bilirubin Urine Urobilinogen Ur Leukocyte Esterase Urine WBC (Auto) Urine RBC (Auto) U Hyaline Cast (Auto) U Epithel Cells (Auto) Urine Bacteria (Auto) Ur Renal Epithelial Cell Urine Mucus POC Ur Test NEG Stl C. diff Tox B Gene Blood Type A Positive Antibody Screen NEGATIVE 12/17/19 12/17/19 12/17/19 16:32 16:32 21:58 WBC RBC Hgb Hct MCV MCH MCHC RDW Std Deviation RDW Coeff of Leigh Ann Plt Count MPV Immature Gran % (Auto) Neut % (Auto) Lymph % (Auto) [place] % (Auto) Eos % (Auto) Baso % (Auto) Neut # (Auto) Lymph # (Auto) [place] # (Auto) Eos # (Auto) Baso # (Auto) Immature Gran # (Auto) Sodium 137 Potassium 3.5 Chloride 106 Carbon Dioxide 22 Anion Gap 9.0 BUN 9 Creatinine 0.90 Est Cr Clr Drug Dosing 105.6 Est GFR ( Amer) 105.9 Est GFR (Non-Af Amer) 91.4 BUN/Creatinine Ratio 9.6 L Glucose 101 H Calcium 9.3 Magnesium 2.1 Total Bilirubin 0.4 AST 11 L ALT 11 L Alkaline Phosphatase 70 Total Protein 8.6 H Albumin 4.1 Globulin 4.5 H Albumin/Globulin Ratio 0.9 Lipase 79 Urine Color Yellow Urine Appearance Clear Urine pH 5.0 Ur Specific [place] 1.016 Urine Protein Trace H Urine Glucose (UA) Negative Urine Ketones 2+ H Urine Blood 3+ H Urine Nitrite Negative Urine Bilirubin Negative Urine Urobilinogen Negative Ur Leukocyte Esterase Trace H Urine WBC (Auto) 1-5 Urine RBC (Auto) 0-4 U Hyaline Cast (Auto) 10-30 H U Epithel Cells (Auto) >30 H Urine Bacteria (Auto) Negative Ur Renal Epithelial Cell Not Reportable Urine Mucus Present A POC Ur Test Stl C. diff Tox B Gene Negative Cdiff Gene Blood Type Antibody Screen 12/18/19 05:53 WBC 8.95 RBC 3.57 L Hgb 8.9 L Hct 28.3 L MCV 79.3 L MCH 24.9 L MCHC 31.4 L RDW Std Deviation 43.0 RDW Coeff of Leigh Ann 15.0 H Plt Count 305 MPV 9.3 Immature Gran % (Auto) 0.3 Neut % (Auto) 68.6 Lymph % (Auto) 16.2 [place] % (Auto) 11.7 Eos % (Auto) 3.1 Baso % (Auto) 0.1 Neut # (Auto) 6.13 Lymph # (Auto) 1.45 [place] # (Auto) 1.05 H Eos # (Auto) 0.28 Baso # (Auto) 0.01 Immature Gran # (Auto) 0.03 H Sodium Potassium Chloride Carbon Dioxide Anion Gap BUN Creatinine Est Cr Clr Drug Dosing Est GFR ( Amer) Est GFR (Non-Af Amer) BUN/Creatinine Ratio Glucose Calcium Magnesium Total Bilirubin AST ALT Alkaline Phosphatase Total Protein Albumin Globulin Albumin/Globulin Ratio Lipase Urine Color Urine Appearance Urine pH Ur Specific [place] Urine Protein Urine Glucose (UA) Urine Ketones Urine Blood Urine Nitrite Urine Bilirubin Urine Urobilinogen Ur Leukocyte Esterase Urine WBC (Auto) Urine RBC (Auto) U Hyaline Cast (Auto) U Epithel Cells (Auto) Urine Bacteria (Auto) Ur Renal Epithelial Cell Urine Mucus POC Ur Test Stl C. diff Tox B Gene Blood Type Antibody Screen 12/17/2019: CT OF THE ABDOMEN AND PELVIS WITH CONTRAST CLINICAL HISTORY: Abdominal pain. Rectal bleeding. COMPARISON STUDY: None. TECHNIQUE: Following IV administration of 94 mL of [id number]-320, axial images of the abdomen and pelvis were obtained from the lung bases to the proximal femurs. Images were reviewed in the axial, sagittal, and coronal planes. IV contrast was administered without complication. Automated exposure control was utilized for the study. A dose lowering technique was utilized adhering to the principles of ALARA. Oral contrast was administered. CT DOSE: 491.90 mGy.cm FINDINGS: Lung bases are unremarkable. No pneumatosis, free air or portal venous gas is present. The liver, spleen, adrenal glands, kidneys and pancreas are normal. There is no biliary or pancreatic ductal dilatation. There is no hydronephrosis or hydroureter. There is no evidence for a bowel obstruction. The appendix is normal. Note is made of moderate wall thickening of the entire colon as well as wall thickening of the rectum. Prominent pericolonic lymph nodes are reactive. There is no abscess. No small bowel wall thickening is noted. Ovaries are not enlarged. Major vasculature is patent. No fractures or suspicious lesions are identified within the visualized skeletal structures. IMPRESSION: Mild wall thickening of the rectum and moderate wall thickening of the colon consistent with a pancolitis. This may be infectious or inflammatory in etiology. No abscess. ACT 112: Negative or not required by law. (1) Anemia Anemia type: unspecified type Qualified Code(s): D64.9 - Anemia, unspecified
[2019-12-18] MEDS ORDERED: ACETAMINOPHEN 1,000 MG/100 ML VIAL IV PRN (11:12)
[2019-12-18] MEDS: MoRPHine SULFATE 2 MG/ML CARP IV PRN ×2 (13:51→21:50)
[2019-12-18] MEDS: methylPREDNISolone 60 MG in SYRINGE 0 ML IV SCH ×2 (13:52→21:50)
--- NOTE | 2019-12-18 18:47 | Hospitalist Progress Note ---
Date of Service December 18, 2019 Assessment & Plan (1) Colitis: Bradford colitis on CT - ongoing for months. Concerning for IBD GI consulted - recommends Solumedrol, colonoscopy outpatient Will give acetaminophen IV while NPO and morphine for pain Will give clear liquid diet and assess for tolerance (2) Anemia: Hgb 8.9 , down from 9.7 on admission Will recheck cbc am (3) ADHD: Hold Adderall for now (4) DVT prophylaxis: Hold chemoprophylaxis for active bleeding, SCDs Admission and Anticipated Discharge Date Admission Date: December 17, 2019 Subjective Ms. Vigil continues to have 5/10 abdominal pain. Having about 3 stools per day, bloody. No dizziness, chest pain or sob. ROS Constitutional: no chills, aches, sweats or fever Respiratory: no sob,cough, sputum, or wheezing Cardiac: no chest pain, palpitations, edema, orthopnea or lightheadedness GI: see HPI : no dysuria or hesitancy Extremities: no joint pain or weakness Skin: no rash All other systems reviewed and negative Physical Exam Physical Exam: General: no distress Eyes: normal inspection, PERLL Respiratory: chest non tender, clear to auscultation, normal breath sounds, no respiratory distress, no accessory muscle use Cardiac: regular rate and rhythm, no rub or gallop, no murmur, no edema, no jvd GI/: active bowel sounds, generalized abdominal tenderness to palpation , soft, non distended Extremities: normal range of motion, normal strength, non tender Neuro/Psych: alert and oriented x 3, normal mood and affect Skin: normal color, dry Results & Data Results & Data ([facility]) Vital Signs (Past 12 Hours) Vital Signs Temp Pulse Resp BP Pulse Ox 12/18/19 07:27 36.9 C 93 H 16 127/78 100 PG Care Time/CCT Total # of Minutes Spent Total Time Spent with Patient: Total time spent is greater than 50% in coordination of care (as documented) at patient's floor/unit and/or counseling patient: Coding Level of Care Code 55116 Subseq Hosp Care Lvl 2 Diagnoses Colitis K52.9 Anemia D64.9 Anemia type: unspecified type ADHD F90.9 DVT prophylaxis Z29.9 (1) Anemia Anemia type: unspecified type Qualified Code(s): D64.9 - Anemia, unspecified
--- NOTE | 2019-12-18 21:38 | Billing Data ---
Date of Service December 18, 2019 Coding Level of Care Code 80834 Initial Inpt Care Lvl 3
[2019-12-19 05:32] LABS: Hematocrit (blood only) 30.9 % (37-47); Hemoglobin 9.5 g/dL (12.0-16.0); Mean Corpuscular Hemoglobin 24.5 pg (25-34); Mean Corpuscular Hgb Conc 30.7 g/dL (32-36); Mean Corpuscular Volume 79.6 fL (80-100); Mean Platelet Volume 9.9 fL (7.4-10.4); Platelet Count 401 K/uL (130-400); RDW Standard Deviation 43.5 fL (36.4-46.3); Red Blood Count 3.88 M/uL (4.2-5.4); White Blood Count 10.71 K/uL (4.8-10.8)
[2019-12-19 06:08] LABS: Albumin Level 3.7 gm/dl (3.4-5.0); BUN Creatinine Ratio 6.7 (10-20); Calcium 9.2 mg/dl (8.5-10.1); Creatinine Clr Calc Pharmacy 122.8 ml/min; Est GFR (Non-African American) 108.7; Potassium 3.9 mmol/L (3.5-5.1)
[2019-12-19 06:10] LABS: Albumin Globulin Ratio 0.9 (0.9-2); Bilirubin,Total 0.4 mg/dl (0.2-1); Globulin 4.3 gm/dl (2.5-4.0)
--- NOTE | 2019-12-19 06:19 | Electrocardiogram Report ---
Test Reason : Blood Pressure : / mmHG Vent. Rate : 092 BPM Atrial Rate : 092 BPM P-R Int : 122 ms QRS Dur : 070 ms QT Int : 376 ms P-R-T Axes : -28 059 015 degrees QTc Int : 464 ms Normal sinus rhythm Normal ECG No previous ECGs available Confirmed by Dg Cruz ([id number]) on 12/19/2019 6:19:30 AM Referred By: REFERRED SELF Confirmed By:Dg Cruz
[2019-12-19] MEDS: LACTATED RINGER'S 1,000 ML IV SCH ×3 (06:21→23:25)
[2019-12-19] MEDS: methylPREDNISolone 60 MG in SYRINGE 0 ML IV SCH ×3 (06:21→21:10)
--- NOTE | 2019-12-19 09:12 | Gastroenterology Progress Note ---
Date of Service December 19, 2019 Assessment & Plan (1) Colitis: (2) Blood in stool, pretty: Probable IBD. Continue IV steroids. Elective colonoscopy. Please refer to supervising physician addendum for further recommendations. Admission and Anticipated Discharge Date Admission Date: December 17, 2019 Subjective Patient is feeling significantly better this morning. States morphine did help with pain. BM x 1 without blood today. Denies current abd pain, diarrhea, nausea, vomiting, bloody stools. Review of Systems Review of Systems: All systems reviewed & are unremarkable except as noted in HPI & below Physical Exam Constitutional: WD/WN, vitals as above Eyes: PERRL, conjunctivae normal, anicteric sclerae ENMT: external ear and nose normal, oropharynx normal Neck: trachea midline, no thyromegaly Respiratory: normal respiratory effort, lungs clear to auscultation Cardiovascular: RRR, no murmur, no edema Gastrointestinal (Abdomen): Inspection/Auscultation: abdomen normal to inspection and normal bowel sounds; abdomen not distended Percussion/Palpation: abdomen soft; abdomen nontender, no guarding, abdomen not rigid, no hepatosplenomegaly and no hepatomegaly Musculoskeletal: Extremities: no cyanosis and no clubbing Skin: no rashes, warm and dry Neurologic: PERRL, EOMI, accommodation nl, no face palsy, no dysarthria Psychiatric: A+Ox3, euthymic affect Results & Data ([facility]) Vital Signs (Past 12 Hours) Vital Signs Temp Pulse Resp BP BP Pulse Ox 12/19/19 07:40 36.7 C 96 H 16 126/76 100 12/19/19 00:00 36.9 C 85 16 114/73 100 Laboratory Results - last 24 hr 12/19/19 12/19/19 05:03 05:03 WBC 10.71 RBC 3.88 L Hgb 9.5 L Hct 30.9 L MCV 79.6 L MCH 24.5 L MCHC 30.7 L RDW Std Deviation 43.5 RDW Coeff of Leigh Ann 15.0 H Plt Count 401 H MPV 9.9 Sodium 136 Potassium 3.9 Chloride 106 Carbon Dioxide 20 L Anion Gap 10.0 BUN 5 L Creatinine 0.78 Est Cr Clr Drug Dosing 122.8 Est GFR ( Amer) 126.0 Est GFR (Non-Af Amer) 108.7 BUN/Creatinine Ratio 6.7 L Glucose 137 H Calcium 9.2 Total Bilirubin 0.4 AST 10 L ALT 15 Alkaline Phosphatase 65 Total Protein 8.0 Albumin 3.7 Globulin 4.3 H Albumin/Globulin Ratio 0.9
--- NOTE | 2019-12-19 17:11 | Progress Notes ---
DATE: 12/19/2019 The patient is having less abdominal pain and no rectal bleeding on IV Solu-Medrol 60 mg q. 8 hours. Her stool for C. diff and bacterial pathogens have returned negative. She was sleeping soundly when I went to visit her, but I did discuss her case with her mother. She is on full liquids now and hopefully we can advance her diet tomorrow and possibly proceed with endoscopic evaluation as an outpatient for more definitive diagnosis. We will continue to follow her during her hospitalization.
[2019-12-19] MEDS ORDERED: ACETAMINOPHEN 500 MG TAB PO PRN (18:44)
--- NOTE | 2019-12-19 18:44 | Hospitalist Progress Note ---
Date of Service December 19, 2019 Assessment & Plan (1) Colitis: Improving - advanced to full liquids today Bradford colitis on CT - ongoing for months. Concerning for IBD GI consulted - recommends Solumedrol, colonoscopy outpatient Continue acetaminophen and morphine for pain (2) Anemia: Hgb stable at 9.5. Asymptomatic (3) ADHD: Hold Adderall for now (4) DVT prophylaxis: Hold chemoprophylaxis for active bleeding, SCDs Hopefully dc tomorrow morning Admission and Anticipated Discharge Date Admission Date: December 17, 2019 Subjective Feeling much better today, stools decreasing. Hgb is stable. ROS Constitutional: no chills, aches, sweats or fever Respiratory: no sob,cough, sputum, or wheezing Cardiac: no chest pain, palpitations, edema, orthopnea or lightheadedness GI: no abdominal pain, nausea, vomiting, diarrhea or constipation : no dysuria or hesitancy Extremities: no joint pain or weakness Skin: no rash All other systems reviewed and negative Physical Exam Physical Exam: General: no distress Eyes: normal inspection, PERLL Respiratory: chest non tender, clear to auscultation, normal breath sounds, no respiratory distress, no accessory muscle use Cardiac: regular rate and rhythm, no rub or gallop, no murmur, no edema, no jvd GI/: active bowel sounds, no abd pain or tenderness, soft, non distended Extremities: normal range of motion, normal strength, non tender Neuro/Psych: alert and oriented x 3, normal mood and affect Skin: normal color, dry Results & Data Results & Data ([facility]) Vital Signs (Past 12 Hours) Vital Signs Temp Pulse Resp BP Pulse Ox 12/19/19 15:30 36.6 C 92 H 16 125/75 99 12/19/19 07:40 36.7 C 96 H 16 126/76 100 PG Care Time/CCT Total # of Minutes Spent Total Time Spent with Patient: Total time spent is greater than 50% in coordination of care (as documented) at patient's floor/unit and/or counseling patient: Coding Level of Care Code 45151 Subseq Hosp Care Lvl 2 Diagnoses Colitis K52.9 Anemia D64.9 Anemia type: unspecified type ADHD F90.9 DVT prophylaxis Z29.9 (1) Anemia Anemia type: unspecified type Qualified Code(s): D64.9 - Anemia, unspecified
[2019-12-20] MEDS: methylPREDNISolone 60 MG in SYRINGE 0 ML IV SCH (05:43)
[2019-12-20 07:38] LABS: Hematocrit (blood only) 28.6 % (37-47); Hemoglobin 8.3 g/dL (12.0-16.0); Mean Corpuscular Hemoglobin 23.4 pg (25-34); Mean Corpuscular Volume 80.6 fL (80-100); Mean Platelet Volume 9.6 fL (7.4-10.4); Nucleated RBC # (auto) 0.02 K/uL (0-0); Nucleated RBC % (auto) 0.2 %; Platelet Count 422 K/uL (130-400); RDW Coefficient of Variation 15.5 % (11.5-14.5); RDW Standard Deviation 45.6 fL (36.4-46.3); Red Blood Count 3.55 M/uL (4.2-5.4); White Blood Count 9.06 K/uL (4.8-10.8)
[2019-12-20 08:09] LABS: BUN Creatinine Ratio 15.8 (10-20); Calcium 9.4 mg/dl (8.5-10.1); Creatinine Clr Calc Pharmacy 149.6 ml/min; Est GFR (African American) 147.8; Est GFR (Non-African American) 127.6; Potassium 3.9 mmol/L (3.5-5.1)
[2019-12-20] MEDS: LACTATED RINGER'S 1,000 ML IV SCH (08:45)
--- NOTE | 2019-12-20 09:45 | Discharge Summary ---
Date of Service December 20, 2019 Admission HPI Per Admitting Provider Karen Moore is a 19 year old female without significant past medical history who presented to the ED with a few-month history of increasingly frequent bloody stools and associated abdominal pain. She first noticed blood-streaked stools a few months ago; at this time she was having 1-2 bowel movements per day, which is normal for her. At first, she would only notice blood on her stool once or twice a week, but over time, this became more frequent, and the amount of blood in her stools increased. Two weeks ago, before she returned to [place] (from [place]) to begin the academic year at [employer], she began to have mild abdominal pain that preceded her bowel movements, and began to experience urgency with her bowel movements. At this time, she was having 3-4 bowel movements per day, with a moderate amount of blood in each bowel movement. She saw her PCP in [place] at this time - she recalls her hemoglobin was 9.4, and after anoscopy, she was told by her PCP that they suspected a "tear". Over the past few days, her abdominal pain, bowel movement frequency, and blood in her stool have all worsened; she reports at least one bowel movement per hour, grossly bloody stools, and abdominal pain severe enough to wake her up from sleep 3-4 times per night. She describes her abdominal pain as dull and not confined to a specific location or quadrant; it was originally relieved by having a bowel movement, but over the past few days, her pain has remained even after bowel movements. It is mild (1-2/10) at rest but most severe (8-9/10) right before each bowel movement. The progression of her symptoms has been gradual and she has not noticed any inciting factor or trigger including dietary factors, and has not had any recent illnesses. Throughout the course of her symptoms over the past few months up until now, patient denies fever, nausea, vomiting, diarrhea, lightheadedness, watery stools, weakness, palpitations, racing heartbeat, cough, congestion, sick contacts, chills, night sweats, chest pain, shortness of breath, or easy bruising. She is not aware of any family history of inflammatory bowel disease. She is sensitive to red dye (reaction - vomiting) but has no other dietary sensitivities, intolerances, or allergies. Patient denies any recent antibiotic use. Her only medical condition is ADHD for which she takes adderall XR 25mg daily. Principal Diagnosis IBD Discharge Exam Constitutional WD/WN, vitals as above Respiratory normal respiratory effort, lungs clear to auscultation Cardiovascular RRR, no murmur, no edema Gastrointestinal (Abdomen) normal bowel sounds, soft, nontender, no hepatosplenomegaly Musculoskeletal no cyanosis or clubbing, extremities motor strength 5/5 Skin no rashes, warm and dry Neurologic moves all extremities and awake Psychiatric A+Ox3, euthymic affect Discharge Data Allergies Allergy/AdvReac Type Severity Reaction Status Date / Time red dye AdvReac Intermediate Vomiting Verified 12/17/19 17:19 Consultations 12/17/19 20:49 ED Decision to Admit Stat 12/18/19 08:10 Consult Gastroenterology Routine Ordered Studies 12/17/19 17:01 CT abd pelvis oral and IV con Stat Hospital Course (1) Colitis: Improving - tolerating advancing diet Alejo colitis on CT - ongoing for months. Concerning for IBD GI consulted - recommends Solumedrol, colonoscopy outpatient. Will have prednisone and mesalamine for discharge Continue acetaminophen and morphine for pain (2) Anemia: Hgb 8.3 today, likely dilutional as she was dehydrated on admission. Bowel movements have slowed. Will have her recheck cbc on Sunday. (3) ADHD: Hold Adderall for now (4) DVT prophylaxis: Hold chemoprophylaxis for active bleeding, SCDs Total Time Total Time Spent Total Time Spent (In Minutes): greater than 30 minutes Discharge Plan Discharge Items Patient Disposition: Home - Self-Care Reason For Visit: BLOODY STOOLS, ABDOMINAL PAIN Discharge Diagnosis: Inflammatory Bowel Disease Condition on Discharge: Fair Activity: Resume your previous activity Non-emergency contact: Primary Care Provider Call non-emergency contact if: you have any medication questions, your symptoms worsen and you have a fever Follow-up/Referrals: Sterling Webster [Physician] - (Follow up one week ) Lucius Rubio MD [Resident] - (Follow up one week ) Diet: Low Fiber Ambulatory Orders: Complete Blood Count no Diff (Timed) Timeframe: [id number] Location: Determined by Patient Ordered By: Deedee Parra Attending Provider Instructions: You were admitted for likely inflammatory bowel disease. Your CT of your abdomen and pelvis showed colitis (inflammation of the bowel). You were treated with steroids while here. You will continue with steroids (prednisone) 40 mg daily for home. You will also start a new medication called Lialda (mesalamine). This medication helps to decrease inflammation and tamp down the immune system. Because both steroids and mesalamine decrease the immune system, you will need to be careful around other people and avoid those who are sick. You will need to adhere to COVID precautions - wearing a mask around people not in your household and washing your hands frequently. You will need to see Dr. Webster in the gastroenterology office in 1 week. He will discuss scheduling a colonoscopy at that time. Your blood count was a little lower today. I recommend you have your blood drawn on Sunday. Results will go to Dr. Webster so please follow up with them on the results. Pending Studies at Discharge: No Stand-Alone Forms: Work/School Release (ED), My [facility] [employer], Smoking Cessation Medications and DC Order Prescriptions: New mesalamine [Lialda] 1.2 gram tablet,delayed release (DR/EC) 2.4 g PO DAILY 30 Days Qty: 60 RF: 1 prednisone 20 mg tablet 40 mg PO DAILY Qty: 10 RF: 0 Continued dextroamphetamine-amphetamine [Adderall XR] 25 mg capsule,extended release 24hr 25 mg PO QAM PRN (Reason: ADHD) RF: 0 Nexplanon 68 mg Implant 68 mg SUBDERMAL DIRECTED RF: 0 Discharge Orders: Discharge Order (Routine); Ordered 12/20/19 Ordered By: Deedee Hughes/Other Patient Handouts: Low-Fiber Diet, Mesalamine delayed-release, Prednisone tablets Admission Data Admit Date/Time: 12/17/19 23:18 Attending Provider: Mohan Gamboa Admit Provider: Tristin Head Primary Care Provider: [facility] Other Providers: Tristin Head ; Sterling Webster Other Interventions: Discharge Summary Assessment (RN) Last Done: 12/20/19 12:35 Supervising Physician Co-Signing Physician Notes Patient seen and examined on the day of discharge. I agree with the discharge summary by Deedee BROWNE. I have reviewed the chart including labs, imaging and plans for discharge. patient doing much better, smiling, no signs of discomfort she said she had two BM, scant blood in them, nothing like before, and they are more formed she is tolerating diet we have a definitive plan to send on Prednisone and Mesalamine her mother is at the bedside, all questions answered - Chronic bloody diarrhea, suspected inflammatory bowel disease, alejo colitis seen on CT scan improved greatly with Solu Medrol Hb is 8.3, suspect some of the drop recently has been aggressive IV fluids as her bleeding has been minimal discharge home on Prednisone and mesalamine follow up with Dr. Webster with [facility] for colonoscopy in near future for definitive diagnosis Coding Level of Care Code D/C Day Management >30 mins Diagnoses Colitis K52.9 Anemia D64.9 Anemia type: unspecified type ADHD F90.9 DVT prophylaxis Z29.9
--- NOTE | 2019-12-20 11:04 | Progress Notes ---
DATE: 12/20/2019 SUBJECTIVE: The patient is feeling better, less abdominal pain, less diarrhea. Objectively, her hemoglobin is 8.3 today. MCV is 80.6, white count 9.06, platelets are a little bit elevated at 422,000. She has been converted to oral steroids today and is tolerating a low fiber diet. PHYSICAL EXAMINATION: GENERAL: The patient appears awake, alert, in no acute distress. VITAL SIGNS: Normal. She is afebrile. IMPRESSION: The patient has acute colitis. Stool for bacterial pathogens and C. diff are negative. I suspect she either has ulcerative colitis or Crohn's disease. We will discharge her today on 40 mg of prednisone once a day in the morning, Lialda 2.4 grams a day in the morning, low fiber diet with office followup in approximately a week. The patient will need endoscopic evaluation when her disease is a little bit under better control.
== END 2019-12-20 13:41 | disposition home or self-care (01) | DRG 386 ==
LOC: ED 16:06 → 3N 23:18 → SUATTDRO 23:18 → 3N 12-18 00:05